=== PATIENT | female | born 1970 | race African-American/Black ===

== ENCOUNTER 2017-03-22 02:17 | Inpatient (IN) | payer MEDICAID ==
[~2017-03-22] VITALS: Ht 175.3 cm; Wt 84.8 kg
[~2017-03-22 02:17] MED LIST: ALBUTEROL; ASPIRIN; DIAZEPAM; LISINOPRIL; LOSARTAN; MONTELUKAST; SINGULAIR
[2017-03-22] MEDS ORDERED: MORPHINE SULFATE 4 MG/ML CPJ (NOT FOR IM USE) IV STA (03:02)
[2017-03-22] MEDS ORDERED: MORPHINE SULFATE 2 MG/ML CPJ (NOT FOR IM USE) IV SCH (03:15)
[2017-03-22 03:35] LABS: BASOPHILS % 0.4 % (0.0-2.0); HEMATOCRIT. 41.2 % (36.0-48.0); HEMOGLOBIN. 13.5 g/dL (12.0-16.0); LYMPHOCYTES % 11.8 % (20.0-50.0); MEAN CORPUSCULAR HEMOGLOBIN 28.8 pg (28.0-32.0); MEAN CORPUSCULAR VOLUME 87.9 fL (81.0-99.0); MEAN PLATELET VOLUME 7.3 fl (7.4-10.4); MONOCYTES % 2.9 % (2.0-8.0); NEUTROPHILS % 84.9 % (40.0-76.0); PLATELET 398 x1000/uL (130-400); RED BLOOD CELL COUNT 4.69 mill/uL (4.2-5.4); RED CELL DISTRIBUTION WIDTH 14.3 % (11.6-14.6)
[2017-03-22 03:40] LABS: D-DIMER 0.62 mg/L FEU (<0.50); INR 1.1; PROTHROMBIN TIME 11.2 sec (9.4-11.6)
[2017-03-22 03:44] LABS: CARBON DIOXIDE 29 mEq/L (21-32); CHLORIDE 103 mEq/L (98-107); TROPONIN I < 0.02 ng/mL (0.00-0.04)
[2017-03-22 04:15] LABS: HCG SCREEN NEGATIVE
[2017-03-22] MEDS ORDERED: ASPIRIN 325MG EC TABLET PO ONE (05:15)
[2017-03-22] MEDS ORDERED: ACETAMINOPHEN 325MG TABLET PO PRN (08:00)
[2017-03-22] MEDS ORDERED: ONDANSETRON HCL 4MG/2ML VIAL IV PRN (08:00)
[2017-03-22] MEDS ORDERED: DOCUSATE SODIUM 100MG CAPSULE PO PRN (08:00)
[2017-03-22] MEDS ORDERED: MAGNESIUM/ALUMINUM HYDROXIDE/SIMETHICONE 30ML UDC PO PRN (08:00)
[2017-03-22] MEDS ORDERED: IPRATROPIUM/ALBUTEROL 0.5-3(2.5)MG/3ML NEB INH PRN (08:00)
[2017-03-22] MEDS ORDERED: CLONIDINE 0.1MG TABLET PO PRN (08:00)
[2017-03-22] MEDS ORDERED: NA PHOS,M-B/NA PHOS,DI-BA ENEMA 118ML PR PRN (08:00)
[2017-03-22] MEDS ORDERED: GUAIFENESIN 200MG/10ML SUGAR FREE UDC PO PRN (08:00)
[2017-03-22] MEDS ORDERED: DIPHENHYDRAMINE 50MG/ML VIAL IV PRN (08:00)
[2017-03-22] MEDS ORDERED: NITROGLYCERIN 0.4MG TABLET SL SL PRN (08:00)
[2017-03-22] MEDS ORDERED: ASPIRIN 325MG EC TABLET PO SCH (09:00)
[2017-03-22 11:53] VITALS: BP 172/83
[2017-03-22 12:00] VITALS: BP 172/83
[2017-03-22] MEDS ORDERED: KETOROLAC 15MG/ML VIAL IV PRN (12:00)
[2017-03-22] MEDS ORDERED: ENOXAPARIN 40MG/0.4ML SYR SUBCUT SCH (12:00)
[2017-03-22] MEDS: SUCRALFATE 1 G/10 ML UDC PO SCH ×3 (12:20→21:05)
[2017-03-22] MEDS ORDERED: IOHEXOL-350 100 ML BOTTLE ONE (14:32)
[2017-03-22] MEDS ORDERED: SODIUM CHLORIDE 0.9% 10ML VIAL ONE (14:32)
[2017-03-22] MEDS ORDERED: LORAZEPAM 0.5MG TABLET PO PRN (15:00)
[2017-03-22] MEDS ORDERED: LORAZEPAM 0.5MG TABLET PO NR (15:00)
[2017-03-22 15:15] VITALS: BP 161/63
[2017-03-22 16:12] VITALS: BP 159/84
[2017-03-22 17:44] LABS: CREATINE KINASE 91 IU/L (26-192); CREATINE KINASE MB FRACTION 1.6 ng/mL (0.5-3.6); TROPONIN I < 0.02 ng/mL (0.00-0.04)
[2017-03-22] MEDS: AMLODIPINE 5MG TABLET PO SCH (18:11)
[2017-03-22 20:00] VITALS: BP 165/82
[2017-03-22] MEDS ORDERED: ZOLPIDEM TARTRATE 5MG TABLET PO PRN (21:00)
[2017-03-22] MEDS: ATORVASTATIN CALCIUM 10MG TABLET PO SCH (21:05)
[2017-03-22] MEDS: LISINOPRIL 20MG TABLET PO SCH (21:06)
[2017-03-22] MEDS: METOPROLOL TARTRATE 25MG TABLET PO SCH (21:07)
[2017-03-22] MEDS: LORAZEPAM 2MG/ML CPJ IV PRN (21:15)
[2017-03-22] MEDS: FAMOTIDINE 20MG/2ML VIAL IV SCH (21:15)
[2017-03-23] VITALS: BP 133/68
[2017-03-23 01:16] LABS: CREATINE KINASE 72 IU/L (26-192); CREATINE KINASE MB FRACTION 1.1 ng/mL (0.5-3.6); TROPONIN I < 0.02 ng/mL (0.00-0.04)
[2017-03-23 04:00] VITALS: BP 142/74
[2017-03-23] MEDS: SUCRALFATE 1 G/10 ML UDC PO SCH ×4 (06:54→20:11)
[2017-03-23 07:17] VITALS: BP 128/62
[2017-03-23 09:25] LABS: CARBON DIOXIDE 26 mEq/L (21-32); CHLORIDE 105 mEq/L (98-107); TROPONIN I < 0.02 ng/mL (0.00-0.04)
[2017-03-23] MEDS: FAMOTIDINE 20MG/2ML VIAL IV SCH ×2 (09:26→20:10)
[2017-03-23] MEDS: LISINOPRIL 20MG TABLET PO SCH ×2 (09:32→20:11)
[2017-03-23] MEDS: METOPROLOL TARTRATE 25MG TABLET PO SCH ×2 (09:33→20:11)
[2017-03-23] MEDS: AMLODIPINE 5MG TABLET PO SCH (09:33)
[2017-03-23 10:04] LABS: CLARITY URINE CLEAR (CLEAR); COLOR URINE YELLOW (YELLOW); GLUCOSE URINE NEGATIVE (NEGATIVE); KETONES URINE NEGATIVE (NEGATIVE); LEUKOCYTE ESTERASE URINE NEGATIVE (NEGATIVE); NITRITE URINE NEGATIVE (NEGATIVE); OCCULT BLOOD URINE NEGATIVE (NEGATIVE); PH URINE 5.5 (4.5-8.0); PROTEIN URINE NEGATIVE (NEGATIVE); SPECIFIC GRAVITY URINE 1.013 (1.005-1.030); UROBILINOGEN URINE 0.2 E.U./dL (0.2-1.0)
[2017-03-23 10:33] LABS: *BARBITURATES SCREEN URINE NEGATIVE (NEGATIVE); *BENZODIAZEPINES SCREEN URINE NEGATIVE (NEGATIVE); *COCAINE SCREEN URINE NEGATIVE (NEGATIVE); CANNABINOID URINE SCREEN NEGATIVE (NEGATIVE); METHADONE URINE SCREEN NEGATIVE (NEGATIVE); PHENCYCLIDINE URINE SCREEN NEGATIVE (NEGATIVE)
[2017-03-23 10:34] LABS: *AMPHETAMINES SCREEN URINE PRESUMTIVE POSITIVE (NEGATIVE); OPIATES URINE SCREEN PRESUMTIVE POSITIVE (NEGATIVE)
[2017-03-23] MEDS: LORAZEPAM 2MG/ML CPJ IV PRN (10:38)
[2017-03-23 11:19] VITALS: BP 153/77
[2017-03-23 15:24] VITALS: BP 163/90
[2017-03-23 19:45] VITALS: BP 162/73
[2017-03-23] MEDS: ATORVASTATIN CALCIUM 10MG TABLET PO SCH (20:11)
== END 2017-03-23 21:00 | disposition home or self-care (01) | DRG 203 ==
LOC: ER 02:17 → 6WST 06:25 → EDBEDREQ 06:28 → EDBEDREQTM 06:28 → ENRESERV 10:26
PROVIDERS: ADMIT Internal Medicine; ATTEND Internal Medicine
DX: R07.89 Other chest pain (principal); E87.1 Hypo-osmolality and hyponatremia; I10 Essential (primary) hypertension; F31.9 Bipolar disorder, unspecified; E78.5 Hyperlipidemia, unspecified; E88.09 Other disorders of plasma-protein metabolism, not elsewhere classified; F15.10 Other stimulant abuse, uncomplicated; J45.909 Unspecified asthma, uncomplicated; Z79.82 Long term (current) use of aspirin; Z79.899 Other long term (current) drug therapy; Z88.1 Allergy status to other antibiotic agents; Z72.89 Other problems related to lifestyle
CPT/HCPCS: 36415; 71010; 71275; 80048; 80053; 80061; 80305; 81003; 82550; 82553; 83036; 83880; 84484; 84703; 85025; 85379; 85610; 93005; 93306; 93970; 96374; 99285; A4216; J1885; J2060; J2270; J3490; Q9967

== ENCOUNTER 2024-06-20 17:28 | Emergency (ER) | payer MEDICAID ==
[~2024-06-20] VITALS: Ht 167.6 cm; Wt 100.0 kg
[2024-06-20 17:35] VITALS: TEMP 97.6; O2SAT 100
[2024-06-20] MEDS: NITROGLYCERIN 0.4MG TABLET SL SL ONE (17:45)
[2024-06-20] MEDS: NITROGLYCERIN OINT 1GM/INCH UDPKT TD ONE (17:45)
[2024-06-20 17:56] VITALS: RESP 20
[2024-06-20] MEDS: ALBUTEROL (0.083%) 2.5MG/3ML NEB HHN STA (17:56)
[2024-06-20] MEDS: IPRATROPIUM BROMIDE (0.02%) 0.5MG/2.5ML NEB HHN STA (18:00)
[2024-06-20 18:23] LABS: BASOPHILS % 0.4 % (0.0-2.0); EOSINOPHILS % 3.5 % (0.0-5.0); HEMATOCRIT. 42.5 % (36.0-48.0); HEMOGLOBIN. 13.9 g/dL (12.0-16.0); LYMPHOCYTES % 41.8 % (20.0-50.0); MEAN CORPUSCULAR HEMOGLOBIN 28.8 pg (28.0-32.0); MEAN CORPUSCULAR HGB CONC 32.7 g/dL (31.0-37.0); MEAN PLATELET VOLUME 7.3 fl (7.4-10.4); MONOCYTES % 5.5 % (2.0-8.0); NEUTROPHILS % 48.8 % (40.0-76.0); PLATELET 343 x1000/uL (130-400); RED BLOOD CELL COUNT 4.83 mill/uL (4.2-5.4); WHITE BLOOD COUNT 8.1 x1000/uL (4.5-11.0)
[2024-06-20 18:37] LABS: CARBON DIOXIDE 25 mEq/L (21-32); CHLORIDE 107 mEq/L (98-107); POTASSIUM 3.4 mEq/L (3.5-5.1); SODIUM 142 mEq/L (136-145)
[2024-06-20 18:38] LABS: CALCIUM 10.1 mg/dL (8.7-10.4); PROTHROMBIN TIME 10.9 sec (9.6-11.0)
[2024-06-20 18:43] LABS: CREATININE 1.1 mg/dL (0.6-1.0); GLUCOSE 154 mg/dL (70-105); TROPONIN I HIGH SENSITIVITY 12 ng/L (3.0-34); UREA NITROGEN BLOOD 17 mg/dL (9-23)
[2024-06-20] MEDS: FUROSEMIDE 40MG/4ML VIAL IV ONE (18:55)
[2024-06-20] MEDS: LABETALOL 5MG/ML 4ML INJ IV ONE (18:55)
[2024-06-20] MEDS: METHYLPREDNISOLONE SOD SUCC 125MG/2ML (ACT-O-VIAL) IV STA (18:55)
[2024-06-20 19:08] LABS: BG BASE EXCESS -0.8 mmol/L (-2.0-3.0); BG CARBOXYHEMOGLOBIN 0.4 % (0.5-1.5); BG DEOXYHEMOGLOBIN 0.9 % (0.0-5.0); BG FRACTION INSPIRED OXYGEN 35; BG HCO3 ACT 24.5 mmol/L (21.0-28.0); BG OXYGEN SATURATION 99.1 % (94.0-98.0); BG OXYHEMOGLOBIN 98.7 % (94.0-98.0); BG PCO2 42.9 mmHg (32.0-45.0); BG PH 7.375 (7.350-7.450); BG PO2 180.3 mmHg (83.0-108.0); BG SAMPLE SITE LEFT RADIAL; BG VENT MODE MASK - BIPAP
[2024-06-20 21:46] LABS: TROPONIN I HIGH SENSITIVITY 14 ng/L (3.0-34)
[2024-06-20] MEDS: HYDRALAZINE 20MG/ML VIAL IV ONE (22:41)
[2024-06-20] MEDS: MORPHINE SULFATE 2 MG/ML INJ (NOT FOR IM USE) IV ONE (22:42)
[2024-06-20 23:41] VITALS: BP 158/65; PULSE 83; RESP 23; O2SAT 100
[2024-06-21] MEDS ORDERED: DOCUSATE SODIUM 100MG CAPSULE PO PRN (00:30)
[2024-06-21] MEDS ORDERED: ACETAMINOPHEN 325MG TABLET PO PRN ×2 (00:30)
[2024-06-21] MEDS ORDERED: ONDANSETRON HCL 4MG/2ML INJ IV PRN (00:30)
[2024-06-21] MEDS ORDERED: MAGNESIUM/ALUMINUM HYDROXIDE/SIMETHICONE 30ML UDC PO PRN (00:30)
[2024-06-21] MEDS ORDERED: IPRATROPIUM/ALBUTEROL 0.5-3(2.5)MG/3ML NEB HHN PRN (00:30)
[2024-06-21] MEDS ORDERED: CLONIDINE 0.1MG TABLET PO PRN (00:30)
[2024-06-21] MEDS ORDERED: ENOXAPARIN 30MG/0.3ML SYR SUBCUT SCH (09:00)
== END 2024-06-21 00:35 | disposition left against medical advice (07) ==
LOC: ER 17:28 → EDBEDREQ 21:28 → EDBEDREQSVC 21:28 → EDBEDREQTM 21:37 → EDBEDREQSVC 21:37 → ER 06-21 00:35
DX: J45.901 Unspecified asthma with (acute) exacerbation (principal); I16.0 Hypertensive urgency; I11.0 Hypertensive heart disease with heart failure; I50.9 Heart failure, unspecified; F31.9 Bipolar disorder, unspecified; F17.200 Nicotine dependence, unspecified, uncomplicated; I25.2 Old myocardial infarction; F14.90 Cocaine use, unspecified, uncomplicated; F15.90 Other stimulant use, unspecified, uncomplicated; Z88.1 Allergy status to other antibiotic agents; Z79.899 Other long term (current) drug therapy; Z98.890 Other specified postprocedural states
CPT/HCPCS: 80048; 83880; 83690; 85025; 85610; 84484; 87804 ×2; 36415; 73502; 71045; 94640; 82805; 82375; 94660; 93005; 96374; 96375; 99285; 36600; J1940; J0360; J3490; J2919; J2270; Z7610 ×2

== ENCOUNTER 2024-08-21 10:41 | Emergency (ER) | payer MEDICAID ==
[~2024-08-21] VITALS: Ht 175.3 cm; Wt 92.0 kg
[~2024-08-21 10:41] MED LIST changes: +ALBU18HF2 IH; +AMLO5TAB88 PO; +ASPI-1406 PO; -ASPIRIN; +ATOR20TA PO; -LISINOPRIL; -LOSARTAN; +METH4TAB95 MT; +THIA100T72 PO
[2024-08-21 11:40] VITALS: BP 177/69; TEMP 37; O2SAT 98
[2024-08-21 11:55] VITALS: PULSE 88; RESP 28; O2SAT 96
[2024-08-21] MEDS: IPRATROPIUM BROMIDE (0.02%) 0.5MG/2.5ML NEB HHN STA (11:55)
[2024-08-21] MEDS: ALBUTEROL (0.083%) 2.5MG/3ML NEB HHN STA (11:55)
[2024-08-21] MEDS: MAGNESIUM 2 G PREMIX 50 ML IV STA (12:04)
[2024-08-21] MEDS: METHYLPREDNISOLONE SOD SUCC 125MG/2ML (ACT-O-VIAL) IV STA (12:05)
[2024-08-21 12:19] LABS: BASOPHILS % 0.6 % (0.0-2.0); EOSINOPHILS % 4.8 % (0.0-5.0); HEMATOCRIT. 41.8 % (36.0-48.0); HEMOGLOBIN. 13.6 g/dL (12.0-16.0); LYMPHOCYTES % 35.6 % (20.0-50.0); MEAN CORPUSCULAR HEMOGLOBIN 28.2 pg (28.0-32.0); MEAN CORPUSCULAR HGB CONC 32.5 g/dL (31.0-37.0); MEAN CORPUSCULAR VOLUME 86.7 fL (81.0-99.0); MEAN PLATELET VOLUME 7.4 fl (7.4-10.4); MONOCYTES % 7.4 % (2.0-8.0); NEUTROPHILS % 51.6 % (40.0-76.0); PLATELET 301 x1000/uL (130-400); RED BLOOD CELL COUNT 4.82 mill/uL (4.2-5.4); RED CELL DISTRIBUTION WIDTH 14.7 % (11.6-14.6); WHITE BLOOD COUNT 6.1 x1000/uL (4.5-11.0)
[2024-08-21 12:21] LABS: CHLORIDE 106 mEq/L (98-107); POTASSIUM 5.2 mEq/L (3.5-5.1); SODIUM 139 mEq/L (136-145)
[2024-08-21 12:22] LABS: CALCIUM 9.5 mg/dL (8.7-10.4); CARBON DIOXIDE 25 mEq/L (21-32)
[2024-08-21 12:27] LABS: CREATININE 0.7 mg/dL (0.6-1.0); GLUCOSE 116 mg/dL (70-105); UREA NITROGEN BLOOD 12 mg/dL (9-23)
[2024-08-21] MEDS ORDERED: METH4TAB95 MT (12:30)
[2024-08-21] MEDS ORDERED: ALBU18HF2 IH (12:30)
== END 2024-08-21 13:20 | disposition home or self-care (01) ==
LOC: ER 10:41
DX: J45.901 Unspecified asthma with (acute) exacerbation (principal); F17.290 Nicotine dependence, other tobacco product, uncomplicated; F41.9 Anxiety disorder, unspecified; I10 Essential (primary) hypertension; F10.90 Alcohol use, unspecified, uncomplicated; F12.90 Cannabis use, unspecified, uncomplicated; Z79.82 Long term (current) use of aspirin; Z79.899 Other long term (current) drug therapy; Z88.1 Allergy status to other antibiotic agents; Y90.9 Presence of alcohol in blood, level not specified
CPT/HCPCS: 80048; 85025; 36415; 71045; 94644; 96365; 96375; 99285; J3475; J2919; Z7610 ×3; 94070; 94640

== ENCOUNTER 2025-05-22 21:45 | Emergency (ER) | payer MEDICAID ==
[~2025-05-22] VITALS: Ht 175.3 cm; Wt 93.0 kg
[2025-05-22 21:50] VITALS: TEMP 98.7
[2025-05-22] MEDS: METHYLPREDNISOLONE SOD SUCC 125MG/2ML (ACT-O-VIAL) IV ONE (22:34)
[2025-05-22] MEDS: MAGNESIUM 2 G PREMIX 50 ML IV ONE (22:37)
[2025-05-22] MEDS: SODIUM CHLORIDE 0.9% 1,000 ML IV ONE (22:43)
[2025-05-22] MEDS: LABETALOL 5MG/ML 4ML INJ IV ONE (23:45)
[2025-05-23] MEDS: ALBUTEROL (0.083%) 2.5MG/3ML NEB HHN SCH ×2 (00:45→00:46)
[2025-05-23] MEDS: IPRATROPIUM BROMIDE (0.02%) 0.5MG/2.5ML NEB HHN SCH ×2 (00:45→00:46)
[2025-05-23 00:52] VITALS: PULSE 90; RESP 15; O2SAT 98
[2025-05-23] MEDS ORDERED: ALBU18HF2 IH (01:05)
[2025-05-23] MEDS ORDERED: ALBU2.5V13 NEB (01:36)
[2025-05-23 01:59] VITALS: PULSE 85; RESP 18; O2SAT 100
[2025-05-23 02:04] VITALS: BP 181/75
[2025-05-23] MEDS: LABETALOL 5MG/ML 4ML INJ IV NR (02:04)
[2025-05-25] MEDS ORDERED: LISI2.5T47 PO (17:34)
[2025-05-25] MEDS ORDERED: GUAI237L83 MT (17:34)
[2025-05-27] MEDS ORDERED: PRED10TA MT (13:18)
[2025-05-27] MEDS ORDERED: LIP40 PO (13:18)
[2025-05-27] MEDS ORDERED: ALBU18HF2 IH (13:18)
[2025-05-27] MEDS ORDERED: LISI20TA31 PO (13:18)
[2025-05-27] MEDS ORDERED: AMLO10TA80 PO (13:18)
[2025-05-27] MEDS ORDERED: FLUT1DIS3 INH (13:18)
[2025-05-27] MEDS ORDERED: ASPI-1406 PO (13:18)
== END 2025-05-23 02:24 | disposition home or self-care (01) ==
LOC: ER 21:45
DX: J45.901 Unspecified asthma with (acute) exacerbation (principal); J06.9 Acute upper respiratory infection, unspecified; I10 Essential (primary) hypertension; F41.9 Anxiety disorder, unspecified; Z79.82 Long term (current) use of aspirin; Z88.1 Allergy status to other antibiotic agents; Z79.899 Other long term (current) drug therapy
CPT/HCPCS: 71045; 93005; 96361; 96365; 96366; 96375 ×2; 99285; 94640; 98960; J3475; J2919; J7030; J3490; Z7610 ×2; 94070; 94664